=== PATIENT | female | born 1955 | race Caucasian/White ===

== ENCOUNTER → 2016-07-17 | Outpatient (CLI) | payer BC, OTHER ==
[~2016-07-17] MED LIST: DECADRON-DPS4 MG PO; LEVAQUIN DPS500 MG PO; XARELTO15 MG PO
== END | disposition home or self-care (01) ==
LOC: PTH.S 08:10
DX: C34.31 Malignant neoplasm of lower lobe, right bronchus or lung (principal); C79.31 Secondary malignant neoplasm of brain; N85.2 Hypertrophy of uterus; M89.9 Disorder of bone, unspecified